=== PATIENT | female | born 1985 | race Hispanic/Latino ===

== ENCOUNTER 2018-06-22 22:05 | Inpatient (IN) | payer BC ==
[2018-06-22 22:49] VITALS: BMI 27.4
--- NOTE | 2018-06-22 23:00 | OBADHP ---
Datetime: 06/22/2018 22:47 IP Adm Impression Other: Irregular labor Post EDC Admit Comment, IP Provider: 33yo with IUP at 40.6weeks presents to the LND c/o pelvic pain and contractions which had started @5pm and which has increased in intensity. Patient denies any VB or L OF and feels good movements. PNC with Dr Bradley. Was scheduled for IOL tommorrow Uncomplicated course. O: afebrile Heart: RRR Chest: CTA B/L Abd: Soft, NT, BS- present FHR 130s with moderate variabilities ,no decels TOCO- Q 2-5 mins Assessment: IUP at 40.6 weeks in early labor Irregular labor Post EDC. NST Reactive. Plan: Admit to LND Monitor for the progress of labor Cervidil for cervical ripening if labor slows Pelvic Type - PN: Adequate Extremities - PN: Normal Abdomen - PN: Normal Back - PN: Normal Breast - PN: Normal Lungs - PN: Normal Heart - PN: Normal Thyroid - PN: Normal Neurologic - PN: Normal HEENT - PN: Normal General - PN: Normal Presentation-Admit: Vertex FHR - Baseline A Provider: 130 Membranes, Provider: Intact Contraction Comments Provider: Q 2-5 Gestation - Est Wks by US: 40.6 Vital Signs Provider: Reviewed IP Chief Complaint: Uterine contractions; Maternal discomfort NICHD Variability Prov Fetus A: Moderate 6-25bpm NICHD Accel Fetus A IP Provider: 15X15 FHR Category Provider Fetus A: Category I NICHD Decel Fetus A IP Provider: None Dilatation, Provider: 1 Effacement, Provider: 80 Station, Provider: -2 Genitourinary Exam: Normal DTRs - PN: Normal IP Adm Impression: Term, intrauterine IP Admit Plan: Admit to unit; Initiate labor protocol
[2018-06-22] MEDS ORDERED: Lactated Ringer's 1,000 ML IV ONE (23:03)
[2018-06-22] MEDS ORDERED: Lactated Ringer's 1,000 ML IV SCH (23:15)
[2018-06-22 23:25] LABS: BASO % 0.5 % (0.0-2.0); EOS # 0.1 K/uL (0.0-0.7); EOS % 0.6 % (0.0-4.0); HEMOGLOBIN 12.6 g/dL (12.0-16.0); LYMPH % 20.1 % (20.0-40.0); MEAN CELL VOLUME 93.6 fl (81.0-99.0); MEAN CORPUSCULAR HEMOGLOBIN 31.8 pg (27.0-31.0); MEAN CORPUSCULAR HGB CONC 33.9 g/dL (33.0-37.0); MEAN PLATELET VOLUME 8.8 fl (7.2-11.7); MONO # 0.8 K/uL (0.0-0.8); MONO % 8.4 % (0.0-10.0); NEUT # 7.1 K/uL (1.8-7.0); NEUT % 70.4 % (50.0-75.0); RBC 3.96 Mil/uL (3.80-5.20); RED CELL DISTRIBUTION WIDTH 13.5 % (11.5-14.5)
--- NOTE | 2018-06-23 07:17 | OBPN ---
Datetime: 06/23/2018 07:10 IP Progress Impression: Normal progression of labor IP Procedures: Sterile Vag Exam IP Progress Plan: Continue present management; Cervical Ripening Membranes, Provider: Intact FHR - Baseline A Provider: 130 Gestation - Est Wks by US: 41.0 Presentation-Admit: Vertex IP Progress Note Comment: IUP AT 41 WEEKS IN LATENT PHASE OF LABOR. Plan: Cervical ripening Monitor the progress of labor. NICHD Accel Fetus A IP Provider: 15X15 FHR Category Provider Fetus A: Category I NICHD Variability Prov Fetus A: Moderate 6-25bpm Dilatation, Provider: 3 Effacement, Provider: 50 Station, Provider: -2 NICHD Decel Fetus A IP Provider: None Datetime: 06/22/2018 22:47 Contraction Comments Provider: Q 2-5 Vital Signs Provider: Reviewed
--- NOTE | 2018-06-23 13:11 | OBPN ---
Datetime: 06/23/2018 13:05 IP Progress Impression: Normal progression of labor IP Procedures: Sterile Vag Exam IP Progress Plan: Augmentation; Anticipate Vaginal Delivery Membranes, Provider: Intact Contraction Comments Provider: Q3-5 FHR - Baseline A Provider: 140 Gestation - Est Wks by US: 41.0 Presentation-Admit: Vertex IP Progress Note Comment: IUP at 41 weeks Currently in Active Labor Reports severe unbearable pelvic cramps and requests for epidural Plan: May have epidural then Pitocin for augmentation of labor. Monitor the progress of labor. Vital Signs Provider: Reviewed NICHD Accel Fetus A IP Provider: 15X15 FHR Category Provider Fetus A: Category I NICHD Variability Prov Fetus A: Moderate 6-25bpm Dilatation, Provider: 4 Effacement, Provider: 70 Station, Provider: -2 NICHD Decel Fetus A IP Provider: None
[2018-06-23] MEDS ORDERED: Oxytocin 30 UNIT 30 UNITS/500 ML BAG IV ONE (13:15)
[2018-06-23] MEDS ORDERED: Fentanyl/Bupivacaine HCl 250 ML EPI ONE (13:23)
[2018-06-23] MEDS ORDERED: ePHEDrine 50 mg/ml Inj ONE (13:57)
--- NOTE | 2018-06-23 16:58 | OBPN ---
Datetime: 06/23/2018 16:54 IP Progress Impression: Normal progression of labor; Reassuring heart rate IP Procedures: Artificial ROM; Sterile Vag Exam IP Progress Plan: Continue present management; Augmentation Membranes, Provider: Ruptured Amniotic Fluid Color, Provider: Clear Contraction Comments Provider: Q 2-4 FHR - Baseline A Provider: 140 Gestation - Est Wks by US: 41.0 Presentation-Admit: Vertex IP Progress Note Comment: IUP at 41 weeks Actuive labor SVE: /-2 AROM done- clear fluid Plan: Continue augmentation with Pitocin. Monitor the progress of labor. NICHD Accel Fetus A IP Provider: 15X15 FHR Category Provider Fetus A: Category I NICHD Variability Prov Fetus A: Moderate 6-25bpm Dilatation, Provider: 6 Effacement, Provider: 90 Station, Provider: -2 NICHD Decel Fetus A IP Provider: None
--- NOTE | 2018-06-24 00:23 | OBPN ---
Datetime: 06/24/2018 00:20 IP Progress Impression: Normal progression of labor IP Procedures: Sterile Vag Exam IP Progress Plan: Continue present management Contraction Comments Provider: q3-4min FHR - Baseline A Provider: 130s-140s IP Progress Note Comment: Patient without complaints. Dilated, 0 station heart tracing category 1 Patient to begin pushing, discussed plan with patient all patient questions answered. Vital Signs Provider: Reviewed; Within Normal Limits NICHD Accel Fetus A IP Provider: 15X15 FHR Category Provider Fetus A: Category I NICHD Variability Prov Fetus A: Moderate 6-25bpm Dilatation, Provider: 10 Effacement, Provider: 100 Station, Provider: 0 NICHD Decel Fetus A IP Provider: None
[2018-06-24] MEDS ORDERED: Lidocaine 1% Inj (20ml) ONE (01:02)
[2018-06-24] MEDS ORDERED: Oxytocin 30 UNIT 30 UNITS/500 ML BAG IV ONE (02:09)
[2018-06-24] MEDS ORDERED: OXYTOCIN/0.9 % NS 20 UNIT/1,000 ML BAG IV ONE (02:14)
[2018-06-24] MEDS ORDERED: OXYTOCIN/0.9 % NS 20 UNIT/1,000 ML BAG IV SCH (02:30)
[2018-06-24] MEDS ORDERED: Benzocaine/Menthol SPRAY TOP PRN ×2 (04:50→05:33)
[2018-06-24] MEDS ORDERED: Oxycodone/Acetaminophen 5/325 mg Tab PO PRN ×2 (04:50→05:33)
--- NOTE | 2018-06-24 08:50 | OBDS ---
DELIVERY PERSONNEL Delivery Doctor: Yakelin Flower MD Java Web User Interface Developer: Meera Corona RN Anesthesiologist: Amber Rodney MD (Annotations: Data stored by [facility] on behalf of user) MATERNAL INFORMATION Delivery Anesthesia: Local; Epidural Medications in Delivery: Pitocin 30units/500mL of LR Estimated Blood Loss (ml): 200 QBL Placenta Cultured: No Maternal Complications: None Provider Comments: Normal spontaneous vaginal delivery. Patient delivered viable male with Apgars of 9 and 9 at one and 5 minutes respectively. Nuc milka cord 1 reduced. Placenta delivered spontaneously. Laceration repaired, as above. Uterus firm an d appropriately hemostatic following delivery. Patient tolerated delivery and a Pipelle well. No comp lications. Estimated blood loss 300 mL. LABOR SUMMARY EDC: 06/16/2018 00:00 No. Babies in Womb: 1 Attempted: No Labor Anesthesia: Epidural LABOR INFORMATION Reason for Induction: Other Reason for Induction Other: post-dates Onset of Labor: 06/22/2018 17:00 Complete Dilatation: 06/24/2018 01:10 Cervical Ripening Agents: Cervidil (Annotations: taken out by Dr Candelario.Pt requesting for epidural before starting pitocin) Oxytocin: Augmentation Group B Beta Strep: Negative Steroids Given: None Reason Steroids Not Administered: Not Applicable MEMBRANES Membranes Rupture Method: Artificial Rupture of Membranes: 06/23/2018 16:39 Length of Rupture (hrs): 9.43 Amniotic Fluid Color: Clear Amniotic Fluid Amount: Moderate Amniotic Fluid Odor: Normal STAGES OF LABOR Stage 1 hrs: 32 Stage 1 min: 10 Stage 2 hrs: 0 Stage 2 min: 55 Stage 3 hrs: 0 Stage 3 min: 4 Total Time in Labor hrs: 33 Total Time in Labor min: 9 VAGINAL DELIVERY Episiotomy: None Laceration Extension: First Degree Laceration Type: Vaginal Laceration Repair Note: Right lateral first-degree vaginal laceration. Area infiltrated with 1% lido jennifer. Laceration repaired with 2. 0 repeat without complication. Patient tolerated well. Initial Vag Sponge Count: 15 Final Vag Sponge Count: 15 Initial Vag Sharps Count: 2 Final Vag Sharps Count: 2 Sponge Count Correct: Yes Sharps Count Correct: Yes BABY A INFORMATION Delivery Date/Time: 06/24/2018 02:05 Method of Delivery: Vaginal Born in Route : No : N/A Forceps: N/A Vacuum Extraction: N/A Shoulder Dystocia : No SHOULDER DYSTOCIA BABY A Delivery Date/Time: 06/24/2018 02:05 PRESENTATION/POSITION BABY A Presentation: Cephalic Cephalic Presentation: Vertex Breech Presentation: N/A PLACENTA INFORMATION BABY A Placenta Delivery Time : 06/24/2018 02:09 Placenta Method of Delivery: Spontaneous Placenta Status: Delivered SCORES BABY A Heart Rate 1 min: >100 bpm Resp Effort 1 min: Good Cry Reflex Irritability 1 min: Cough or Sneeze or Pulls Away Muscle Tone 1 min: Active Motion Color 1 min: Body [place], Extremities Blue Resuscitation Effort 1 min: Tactile Stimulation SCORE 1 MIN: 9 Heart Rate 5 min: >100 bpm Resp Effort 5 min: Good Cry Reflex Irritability 5 min: Cough or Sneeze or Pulls Away Muscle Tone 5 min: Active Motion Color 5 min: Body [place], Extremities Blue Resuscitation Effort 5 min: N/A SCORE 5 MIN: 9 INFANT INFORMATION BABY A Gestational Age at Delivery: 41.1 Gestational Status: Term Outcome : Liveborn Condition : Stable Infant Sex: Male WEIGHT/LENGTH BABY A Birthweight (gms): 3130 Weight (lb): 6 Weight (oz): 14 Infant Length Inches: 20.75 Length cms: 52.7 CORD INFORMATION BABY A No. Cord Vessels: 3 Nuchal Cord : Around Neck x1, Loose Cord Blood Taken: Yes Infant Suction: Mouth; Nose
--- NOTE | 2018-06-24 09:06 | OBDS ---
DELIVERY PERSONNEL Delivery Doctor: Yakelin Flower MD Lusterer: Meera Corona RN Anesthesiologist: Amber Rodney MD (Annotations: Data stored by [facility] on behalf of user) MATERNAL INFORMATION Delivery Anesthesia: Local; Epidural Medications in Delivery: Pitocin 30units/500mL of LR Estimated Blood Loss (ml): 200 QBL Placenta Cultured: No Maternal Complications: None Provider Comments: Normal spontaneous vaginal delivery. Patient delivered viable male with Apgars of 9 and 9 at one and 5 minutes respectively. Nuc milka cord 1 reduced. Placenta delivered spontaneously. Laceration repaired, as above. Uterus firm an d appropriately hemostatic following delivery. Patient tolerated delivery and a Pipelle well. No comp lications. Estimated blood loss 300 mL. LABOR SUMMARY EDC: 06/16/2018 00:00 No. Babies in Womb: 1 Attempted: No Labor Anesthesia: Epidural LABOR INFORMATION Reason for Induction: Other Reason for Induction Other: post-dates Onset of Labor: 06/22/2018 17:00 Complete Dilatation: 06/24/2018 01:10 Cervical Ripening Agents: Cervidil (Annotations: taken out by Dr Candelario.Pt requesting for epidural before starting pitocin) Cervical Ripening Agents: Cervidil Oxytocin: Augmentation Group B Beta Strep: Negative Steroids Given: None Reason Steroids Not Administered: Not Applicable MEMBRANES Membranes Rupture Method: Artificial Membranes Rupture Method: Artificial Membranes Rupture Method: Artificial Membranes Rupture Method: Artificial Membranes Rupture Method: Artificial Membranes Rupture Method: Artificial Membranes Rupture Method: Artificial Membranes Rupture Method: Artificial Membranes Rupture Method: Artificial Membranes Rupture Method: Artificial Membranes Rupture Method: Artificial Membranes Rupture Method: Artificial Membranes Rupture Method: Artificial Membranes Rupture Method: Artificial Membranes Rupture Method: Artificial Membranes Rupture Method: Artificial Membranes Rupture Method: Artificial Membranes Rupture Method: Artificial Membranes Rupture Method: Artificial Membranes Rupture Method: Artificial Membranes Rupture Method: Artificial Membranes Rupture Method: Artificial Membranes Rupture Method: Artificial Membranes Rupture Method: Artificial Membranes Rupture Method: Artificial Rupture of Membranes: 06/23/2018 16:39 Length of Rupture (hrs): 9.43 Amniotic Fluid Color: Clear Amniotic Fluid Amount: Moderate Amniotic Fluid Odor: Normal STAGES OF LABOR Stage 1 hrs: 32 Stage 1 min: 10 Stage 2 hrs: 0 Stage 2 min: 55 Stage 3 hrs: 0 Stage 3 min: 4 Total Time in Labor hrs: 33 Total Time in Labor min: 9 VAGINAL DELIVERY Episiotomy: None Laceration Extension: First Degree Laceration Type: Vaginal Laceration Repair Note: Right lateral first-degree vaginal laceration. Area infiltrated with 1% lido jennifer. Laceration repaired with 2. 0 repeat without complication. Patient tolerated well. Initial Vag Sponge Count: 15 Final Vag Sponge Count: 15 Initial Vag Sharps Count: 2 Final Vag Sharps Count: 2 Sponge Count Correct: Yes Sharps Count Correct: Yes BABY A INFORMATION Delivery Date/Time: 06/24/2018 02:05 Method of Delivery: Vaginal Born in Route : No : N/A Forceps: N/A Vacuum Extraction: N/A Shoulder Dystocia : No SHOULDER DYSTOCIA BABY A Delivery Date/Time: 06/24/2018 02:05 PRESENTATION/POSITION BABY A Presentation: Cephalic Cephalic Presentation: Vertex Breech Presentation: N/A PLACENTA INFORMATION BABY A Placenta Delivery Time : 06/24/2018 02:09 Placenta Method of Delivery: Spontaneous Placenta Status: Delivered SCORES BABY A Heart Rate 1 min: >100 bpm Resp Effort 1 min: Good Cry Reflex Irritability 1 min: Cough or Sneeze or Pulls Away Muscle Tone 1 min: Active Motion Color 1 min: Body [place], Extremities Blue Resuscitation Effort 1 min: Tactile Stimulation SCORE 1 MIN: 9 Heart Rate 5 min: >100 bpm Resp Effort 5 min: Good Cry Reflex Irritability 5 min: Cough or Sneeze or Pulls Away Muscle Tone 5 min: Active Motion Color 5 min: Body [place], Extremities Blue Resuscitation Effort 5 min: N/A SCORE 5 MIN: 9 INFANT INFORMATION BABY A Gestational Age at Delivery: 41.1 Gestational Status: Term Infant Outcome : Liveborn Infant Condition : Stable Infant Sex: Male WEIGHT/LENGTH BABY A Birthweight (gms): 3130 Weight (lb): 6 Weight (oz): 14 Infant Length Inches: 20.75 Length cms: 52.7 CORD INFORMATION BABY A No. Cord Vessels: 3 Nuchal Cord : Around Neck x1, Loose Cord Blood Taken: Yes Suction: Mouth; Nose
[2018-06-24 11:45] LABS: BASO % 0.2 % (0.0-2.0); HEMOGLOBIN 10.5 g/dL (12.0-16.0); LYMPH # 1.2 K/uL (1.0-4.3); MEAN CELL VOLUME 97.2 fl (81.0-99.0); MEAN CORPUSCULAR HEMOGLOBIN 32.6 pg (27.0-31.0); MEAN CORPUSCULAR HGB CONC 33.5 g/dL (33.0-37.0); MEAN PLATELET VOLUME 8.5 fl (7.2-11.7); MONO # 0.9 K/uL (0.0-0.8); MONO % 5.9 % (0.0-10.0); NEUT # 12.9 K/uL (1.8-7.0); NEUT % 85.9 % (50.0-75.0); NRBC % 0.1 % (0.0-0.0); PLATELET COUNT 178 K/uL (130-400); RBC 3.22 Mil/uL (3.80-5.20); RED CELL DISTRIBUTION WIDTH 13.7 % (11.5-14.5)
[2018-06-24 16:11] LABS: HYPOCHROMIC SLIGHT; LYMPHOCYTE 11 % (20-50); MONOCYTE 4 % (0-10); NEUTROPHIL 85 % (42-75); PLATELET ESTIMATE NORMAL (NORMAL); TOTAL CELLS COUNTED 100
--- NOTE | 2018-06-25 09:48 | OBPPN ---
Datetime: 06/25/2018 09:41 PP Pain Prov: Within normal limits PP Nausea Prov: Denies PP Flatus Prov: Yes PP BM Prov: Yes PP Breasts Prov: Normal PP Heart Prov: Normal PP Lungs Prov: Normal PP Abdomen/Uterus Prov: Normal PP Lochia Prov: Normal PP Vulva/Perineum Prov: Normal PP CVA Tenderness Prov: Normal PP Extremities Prov: Normal PP Progress Prov: Normal PP Impression Prov: Normal progression PP Plan Prov: Continue present management PP Progress Note Prov: She feels fine. no problems A: S/P day 1 PLAN: cont care Vital Signs Provider PP: Reviewed; Within Normal Limits
[2018-06-25] MEDS ORDERED: Lansinoh for Breast Feeding Mothers TP ONE (21:29)
--- NOTE | 2018-06-26 09:09 | OBPPN ---
Datetime: 06/26/2018 09:05 PP Pain Prov: Within normal limits PP Nausea Prov: Denies PP Flatus Prov: Yes PP Breasts Prov: Not Done PP Heart Prov: Normal PP Lungs Prov: Normal PP Abdomen/Uterus Prov: Normal PP Lochia Prov: Not Done PP Vulva/Perineum Prov: Not Done PP CVA Tenderness Prov: Normal PP Extremities Prov: Normal PP Impression Prov: Normal progression PP Plan Prov: Discharge PP Progress Note Prov: Patient doing well ambulating tolerating diet pain well-controlled Vital signs stable afebrile Uterus firm below the umbilicus Extremities no Hom[place] Post day 2 Patient cleared for discharge Follow-up with PMD in6 week Vital Signs Provider PP: Reviewed
--- NOTE | 2018-06-26 09:12 | OBDCSUM ---
Datetime: 06/26/2018 09:09 Discharged to, Provider: Home Follow up at, Provider: PMD Disch Instr Activity: Normal activity Disch Instr Diet: Regular Discharge Instructions, Provider: Routine instructions given Discharge Diagnosis, Provider: Term Delivered Follow up in weeks, Provider: 6 weeks Disch Referrals: None Contraception discussed, Prov: Yes Disch Activity Restrictions: Minimize stair-climbing; No sexual activity; Nothing in vagina - Interc ourse, tampons, douche Discharge Comment, Provider: Cleared for discharge Contraception after Delivery: Undecided
[2018-06-26 18:07] VITALS: BP 123/74; PULSE 62; RESP 20; TEMP 98.3; O2SAT 99
== END 2018-06-26 13:55 | disposition home or self-care (01) | DRG 807 ==
LOC: H.EROB2 22:05 → H.L&D 23:03 → H.OB/GYN 06-24 05:00
PROVIDERS: ADMIT Obstetrics & Gynecology; ATTEND Obstetrics & Gynecology
PROC: 4A1HXCZ Monitoring of Products of Conception, Cardiac Rate, External Approach (ICD-10-PCS; 2018-06-22)
PROC: 10E0XZZ Delivery of Products of Conception, External Approach (ICD-10-PCS; principal; 2018-06-24)
PROC: 0HQ9XZZ Repair Perineum Skin, External Approach (ICD-10-PCS; 2018-06-24)
DX: O62.2 Other uterine inertia (principal); Z37.0 Single live birth; O70.0 First degree perineal laceration during delivery; Z3A.41 41 weeks gestation of pregnancy; O69.81X0 Labor and delivery complicated by cord around neck, without compression, not applicable or unspecified